=== PATIENT | female | born 1985 | race American Indian/Alaskan Native ===

== ENCOUNTER 2021-02-28 23:19 | Emergency (ER) | payer SELFPAY ==
--- NOTE | 2021-02-28 23:28 | Emergency Department Report ---
ED General Adult HPI - General Chief complaint: Syncope Stated complaint: SYNCOPE Time Seen by Provider: 02/28/21 23:23 Source: EMS Mode of arrival: Wheelchair Limitations: No Limitations - History of Present Illness Initial comments: Patient presents with EMS secondary to a near syncopal event. Patient had gone back to work today, for the first day after having coronavirus. She had been feeling somewhat lightheaded earlier. 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 She had a near syncopal event. She was assisted down to the ground. EMS was called and the patient was transported here. Upon arrival here, patient states that she feels well. She states that she was coughing and having a lot of vomiting at the time this happened. She states that it felt like there was fluid in her chest. She does not have the same feeling at this time. She had a chest x-ray done a couple of days ago because she also had the feeling of fluid in her chest. She was told that this was normal. Patient has never had symptoms like this before. She did not have a change in her vision. This really did not happen during exertion. - Related Data Previous Rx's Medication Instructions Recorded Last Taken Type Albuterol Sulfate [Proventil Hfa] 2 puff IH DAILY #1 [email or web address] 02/28/21 Unknown Rx Allergies Allergy/AdvReac Type Severity Reaction Status Date / Time No Known Allergies Allergy Verified 02/28/21 23:27 ED Review of Systems ROS: Stated complaint: SYNCOPE Other details as noted in HPI Comment: All other systems reviewed and negative Constitutional: denies: fever Eyes: denies: eye pain ENT: denies: ear pain Respiratory: denies: cough Cardiovascular: denies: chest pain Endocrine: denies: unexplained weight loss Gastrointestinal: denies: abdominal pain Genitourinary: denies: dysuria Musculoskeletal: denies: back pain Skin: denies: rash Neurological: denies: headache Hematological/Lymphatic: denies: easy bruising ED Past Medical Hx - Past Medical History Previous Medical History?: Yes Additional medical history: Covid infection - Family History Family history: no significant - Medications Home Medications: Home Medications Medication Instructions Recorded Confirmed Last Taken Type Albuterol Sulfate [Proventil Hfa] 2 puff IH DAILY #1 [email or web address] 02/28/21 Unknown Rx ED Physical Exam - General Limitations: No Limitations, Other (Pulse ox noted and normal) General appearance: alert, in no apparent distress - Head Head exam: Present: atraumatic, normocephalic - Eye Eye exam: Present: normal appearance, EOMI - ENT ENT exam: Present: normal orophraynx, normal external ear exam - Neck Neck exam: Present: normal inspection. Absent: meningismus - Respiratory Respiratory exam: Present: normal lung sounds bilaterally. Absent: respiratory distress - Cardiovascular Cardiovascular Exam: Present: regular rate (At my exam the pulse was 90), normal rhythm - GI/Abdominal GI/Abdominal exam: Present: soft. Absent: tenderness - Extremities Exam Extremities exam: Present: normal capillary refill - Back Exam Back exam: Absent: CVA tenderness (R), CVA tenderness (L) - Neurological Exam Neurological exam: Present: alert, oriented X3, CN II-XII intact, normal gait - Psychiatric Psychiatric exam: Present: normal affect, normal mood - Skin Skin exam: Present: warm, dry ED Course Vital Signs 02/28/21 23:27 Temperature 98.0 F Pulse Rate 123 H Respiratory 18 Rate Blood Pressure 138/76 [Left] O2 Sat by Pulse 98 Oximetry - Reevaluation(s) Reevaluation #1: 03/01/21 00:15 Prehospital EKG was noted. We discussed the chest x-ray and further evaluation. Patient said that she felt well and just wanted to go home. ED Medical Decision Making - EKG Data -: EKG Interpreted by Me - EKG Data 03/01/21 00:16 Prehospital EKG showed a normal sinus rhythm at a rate of 62. Intervals are normal including a QRS of 96 and a QT corrected of 395. [place] is normal. There is no ST elevation to suggest STEMI. There is no ST depression suggestive of ischemia. There is some wander of the baseline. There is no old EKG for comparison. - Medical Decision Making Patient presents with EMS due to near syncope. There was no evidence of dysrhythmia based on EKG. EMS did not notice dysrhythmia. She was not found to be orthostatic per EMS. Patient felt well here. We did discuss further evaluation and management. At this time, she was comfortable going home and wanted to go home. We did see a documented tachycardia, but on my exam, this was not persistent or sustained. Heart rate was in the 90s on multiple checks. I do not clinically believe this represents pulmonary embolism. There was no seizure activity reported. Critical care attestation.: If time is entered above; I have spent that time in minutes in the direct care of this critically ill patient, excluding procedure time. ED Disposition Clinical Impression: Near syncope Disposition: HOME / SELF CARE / HOMELESS Is pt being admited?: No Condition: Stable Instructions: Near-Syncope, [id number] Additional Instructions: DRINK FLUIDS. RETURN FOR PROBLEMS. SEE YOUR DOCTOR FOR RECHECK. Prescriptions: Albuterol Sulfate [Proventil Hfa] 2 puff IH DAILY #1 [email or web address] Referrals: PRIMARY CARE, [Primary Care Provider] - 3-5 Days Forms: Work/School Release Form(ED)
[2021-02-28 23:32] VITALS: BP 138/76
== END 2021-03-01 00:53 | disposition home or self-care (01) ==
LOC: ED 23:19
DX: R11.10 Vomiting, unspecified (principal); R55 Syncope and collapse
CPT/HCPCS: 99283

== ENCOUNTER 2021-09-24 23:30 | Emergency (ER) | payer OTHER ==
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
== END 2021-09-24 23:38 | disposition short-term general hospital (02) ==
LOC: ED 23:30
DX: S01.93XA Puncture wound without foreign body of unspecified part of head, initial encounter (principal); W34.09XA Accidental discharge from other specified firearms, initial encounter; Y93.89 Activity, other specified; Y92.89 Other specified places as the place of occurrence of the external cause; Y99.8 Other external cause status
CPT/HCPCS: 31500; 99284